=== PATIENT | male | born 1980 | race Caucasian/White ===

== ENCOUNTER 2017-05-28 12:19 | Emergency (ER) | payer BC, MEDICAID, OTHER, SELFPAY ==
[~2017-05-28] VITALS: Ht 180.3 cm; Wt 82.5 kg
[2017-05-28 12:24] VITALS: BP 144/96
== END 2017-05-28 14:33 | disposition home or self-care (01) ==
LOC: ED 13:22
DX: J02.9 Acute pharyngitis, unspecified (principal); J06.9 Acute upper respiratory infection, unspecified; I10 Essential (primary) hypertension
CPT/HCPCS: 99283